=== PATIENT | female | born 1995 | race Caucasian/White ===

== ENCOUNTER 2023-03-29 11:07 | Emergency (ER) | payer BC ==
[~2023-03-29] VITALS: Ht 162.6 cm; Wt 59.0 kg
[2023-03-29 11:16] VITALS: BP 100/67; TEMP 98; O2SAT 98
[2023-03-29] MEDS: SULFAMETH/TRIMETH 800/160 MG 1 UDTAB TABLET PO ONE (11:30)
[2023-03-29] MEDS ORDERED: SULFAMETH/TRIMETH 800/160 MG 1 UDTAB TABLET ONE (11:30)
[2023-03-29] MEDS ORDERED: LIDOCAINE 1% INJ 50 ML MDV IJ ONE (11:32)
[2023-03-29] MEDS ORDERED: SULF1TAB48 PO (12:05)
== END 2023-03-29 12:14 | disposition home or self-care (01) ==
LOC: ER 11:14
DX: L02.511 Cutaneous abscess of right hand (principal)
CPT/HCPCS: 99283; 10060; J3490; A6403

== ENCOUNTER 2023-04-12 20:07 | Emergency (ER) | payer BC ==
[~2023-04-12] VITALS: Ht 162.6 cm; Wt 59.0 kg
[~2023-04-12 20:07] MED LIST: SULF1TAB48 PO
[2023-04-12 21:07] VITALS: BP 106/73; TEMP 98.9; O2SAT 98
== END 2023-04-12 21:44 | disposition home or self-care (01) ==
LOC: ER 20:11
DX: L02.511 Cutaneous abscess of right hand (principal); Z48.00 Encounter for change or removal of nonsurgical wound dressing

== ENCOUNTER 2023-11-26 18:38 | Emergency (ER) | payer BC ==
[~2023-11-26] VITALS: Ht 162.6 cm; Wt 61.2 kg
[2023-11-26] MEDS: IV NS 0.9% 1,000 ML BAG IV ONE (19:22)
[2023-11-26] MEDS ORDERED: ACETAMINOPHEN ES 500 MG TABLET ONE (20:00)
[2023-11-26] MEDS: ACETAMINOPHEN ES 500 MG TABLET PO ONE (20:00)
[2023-11-26 21:32] VITALS: BP 134/86; TEMP 98.5; O2SAT 100
== END 2023-11-26 21:32 | disposition home or self-care (01) ==
LOC: ER 18:41
DX: S06.0XAA Concussion with loss of consciousness status unknown, initial encounter (principal); S60.221A Contusion of right hand, initial encounter; S40.022A Contusion of left upper arm, initial encounter; Z79.899 Other long term (current) drug therapy; Y08.89XA Assault by other specified means, initial encounter; Y93.89 Activity, other specified; Y92.89 Other specified places as the place of occurrence of the external cause; Y99.8 Other external cause status
CPT/HCPCS: 99284; 70450; 96360; 71045; 73130; 73060; 70486; J7030